=== PATIENT | female | born 1955 | race Caucasian/White ===

== ENCOUNTER 2018-12-25 14:13 | Day surgery (SDC) | payer BC, OTHER ==
[2018-12-25] VITALS (13 sets, daily range): BP systolic 105–154; BP diastolic 41–62
[~2018-12-25] VITALS: Ht 167.6 cm; Wt 108.6 kg
[~2018-12-25 14:13] MED LIST: ATOR10TA87 PO; CARV3.12; DIGO0.25 PO; ENOX100S3 SQ; FURO-150 PO; HYDR1TAB PO; LISI-600 PO; NAPR-56 CORPAK; POTA10CA33 PO; TIOT18CA7 IH; WARF2TAB PO; WARF4TAB36 PO
[2018-12-25] MEDS ORDERED: normal saline 1000ml 1,000 ML IV SCH (14:35)
[2018-12-25] MEDS ORDERED: fentaNYL/PF 50MCG/1 ML 2ML syringe IV PRN (14:35)
[2018-12-25] MEDS ORDERED: MIDAZolam 5mg/ml 2ml vial IV PRN (14:40)
[2018-12-25] MEDS ORDERED: PANT-47 PO (15:59)
[2018-12-25] MEDS ORDERED: oxygen NASALCANN (15:59)
[2018-12-25] MEDS ORDERED: METR45CR2 TOP (15:59)
[2018-12-25] MEDS ORDERED: FEBU40TA PO (15:59)
[2018-12-25] MEDS ORDERED: Diltiazem PO (15:59)
[2018-12-25] MEDS ORDERED: CARB15DR OP (15:59)
[2018-12-25] MEDS ORDERED: ALBU18HF2 INH (15:59)
[2018-12-25] MEDS ORDERED: SILD20TA2 PO (15:59)
[2018-12-25] MEDS ORDERED: HYDR-4353 PO (15:59)
[2018-12-25] MEDS ORDERED: CELE200C PO (15:59)
[2018-12-25] MEDS ORDERED: POLY17PO10 PO (15:59)
[2018-12-25] MEDS ORDERED: POTA10TA10 PO (15:59)
[2018-12-25] MEDS ORDERED: pneumococcal 23-VAL P-sac vacc 25 mcg/0.5ml vial IMVAC ONE (16:25)
== END 2018-12-25 18:30 | disposition home or self-care (01) ==
LOC: SSTAY O 14:13
PROVIDERS: ATTEND Internal Medicine Interventional Cardiology
DX: I34.0 Nonrheumatic mitral (valve) insufficiency (principal); I38 Endocarditis, valve unspecified; J44.9 Chronic obstructive pulmonary disease, unspecified; Z95.0 Presence of cardiac pacemaker; I27.20 Pulmonary hypertension, unspecified; M10.9 Gout, unspecified; Z98.890 Other specified postprocedural states; Z79.899 Other long term (current) drug therapy; Z86.19 Personal history of other infectious and parasitic diseases
CPT/HCPCS: 36415; 85610; 93312; J2250; J3010; J7030

== ENCOUNTER 2019-03-21 11:25 | Day surgery (SDC) | payer BC, OTHER ==
[2019-03-18 12:42] LABS: BASOPHILS # (AUTO) 0.1 X10'3 (0-0.2); BASOPHILS % (AUTO) 1.3 % (0-1); EOSINOPHILS # (AUTO) 0.4 X10'3 (0-0.9); EOSINOPHILS % (AUTO) 4.4 % (0-6); LYMPHOCYTES # (AUTO) 2.8 X10'3 (1.1-4.8); LYMPHOCYTES % (AUTO) 27.8 % (21-51); MEAN CORPUSCULAR HGB CONC 33.3 g/dL (33.0-36.5); MEAN CORPUSCULAR VOLUME 99.1 FL (78-98); MEAN PLATELET VOLUME 8.9 FL (7.4-10.4); MONOCYTES # (AUTO) 1.3 X10'3 (0-0.9); MONOCYTES % (AUTO) 12.6 % (2-12); NEUTROPHILS # (AUTO) 5.4 X10'3 (1.8-7.7); NEUTROPHILS % (AUTO) 53.9 % (42-75); PRE OP HEMATOCRIT 25.1 % (35.0-45.0); PRE OP PLATELET COUNT 397 X10'3 (140-440); RED BLOOD COUNT 2.53 X10'6 (4.20-5.60); RED CELL DISTRIBUTION WIDTH 14.8 % (11.5-14.5)
[2019-03-18 12:45] LABS: PRE OP HEMOGLOBIN 8.4 g/dL (12.0-16.0)
[2019-03-18 12:51] LABS: PRE OP PROTIME 25.1 SECONDS (9.0-12.0)
[2019-03-18 12:53] LABS: PRE OP INR 2.6 INR
[2019-03-18 12:54] LABS: ALBUMIN 3.8 G/DL (3.4-5.0); ALBUMIN/GLOBULIN RATIO 1.2 (1.1-1.5); ALKALINE PHOSPHATASE 82 IU/L (46-116); BLOOD UREA NITROGEN 21 MG/DL (7-18); BUN/CREATININE RATIO 20.4 (6.6-38.0); CALCIUM 8.6 MG/DL (8.5-10.1); CHLORIDE 111 MMOL/L (99-107); CREATININE 1.03 MG/DL (0.40-0.90); PRE OP ALT 22 U/L (30-65); PRE OP ANION GAP 5 (8-16); PRE OP AST 20 U/L (10-37); PRE OP BILIRUB, TOTAL 0.4 MG/DL (0.0-1.0); PRE OP GLUCOSE 84 MG/DL (70-104); PRE OP SODIUM 147 MMOL/L (135-145); TOTAL CARBON DIOXIDE 30.7 MMOL/L (24-32); eGFR 54 ML/MIN
[2019-03-21] VITALS (10 sets, daily range): BP systolic 110–131; BP diastolic 43–76
[~2019-03-21] VITALS: Ht 167.6 cm; Wt 112.0 kg
[~2019-03-21 11:25] MED LIST changes: +ALBU18HF2 INH; -ATOR10TA87 PO; +CARB15DR OP; -CARV3.12; +CELE200C PO; -DIGO0.25 PO; +Diltiazem PO; -ENOX100S3 SQ; +FEBU40TA PO; +HYDR-4353 PO; -HYDR1TAB PO; +METR45CR2 TOP; -NAPR-56 CORPAK; +PANT-47 PO; +POLY17PO10 PO; -POTA10CA33 PO; +POTA10TA10 PO; +SILD20TA2 PO; -TIOT18CA7 IH; +albuterol 2.5 MG/3 ML nebule NEB ONE; +famotidine 20mg tablet PO ONE; +oxygen NASALCANN; +ringers solution, lacted 1,000 ML IV SCH; +vancomycin inj 1,500 MG in normal saline 300ml IV soln IV ONE
[2019-03-21] MEDS ORDERED: MIDAZolam 5mg/ml 2ml vial IV PRN (12:15)
[2019-03-21] MEDS ORDERED: ringers solution, lacted 1,000 ML IV SCH (12:19)
[2019-03-21] MEDS ORDERED: ondansetron/PF 4mg/2ml inj IV PRN (12:20)
[2019-03-21] MEDS ORDERED: labetalol 20mg/4ml (5mg/ml) syringe IV PRN (12:20)
[2019-03-21] MEDS ORDERED: morphine 4 MG/ML inj SYRINge IV PRN ×2 (12:20)
[2019-03-21] MEDS ORDERED: hydrALAZINE 20mg/ml inj. IV PRN (12:20)
[2019-03-21] MEDS ORDERED: fentaNYL/PF 50MCG/1 ML 2ML syringe IV PRN ×2 (12:20)
[2019-03-21 13:10] LABS: PRE OP PROTIME 16.1 SECONDS (9.0-12.0)
[2019-03-21 13:18] LABS: PRE OP INR 1.6 INR
[2019-03-21] MEDS ORDERED: gentamicin 40 MG/1 ML inj ONE (13:37)
[2019-03-21] MEDS ORDERED: ceFAZolin 1000mg inj ONE (13:37)
[2019-03-21] MEDS ORDERED: BUPIVAcaine/PF 2.5 mg/ml (0.25%) 30ml vial ONE (13:37)
[2019-03-21] MEDS ORDERED: etomidate 2mg/ml inj. ONE (13:40)
[2019-03-21] MEDS ORDERED: fentaNYL/PF 50MCG/1 ML 2ML syringe ONE ×2 (13:41→14:16)
[2019-03-21] MEDS ORDERED: midazolam 2 mg/2 ml injection ONE (13:41)
[2019-03-21] MEDS ORDERED: sevoflurane 250ml liquid IH ONE (13:44)
[2019-03-21] MEDS ORDERED: acetaminophen 1,000mg/100ml IV 100 ML IV SCH (15:10)
--- NOTE | 2019-03-21 16:07 | NUR ---
AWAKE AND ORIENTED. VITALS STABLE. DRESSING DI. STATES PAIN IMPROVING. HOME WITH HER SPOUSE AT THIS TIME.
== END 2019-03-21 16:07 | disposition home or self-care (01) ==
LOC: PAS 11:25
PROVIDERS: ATTEND Specialist
DX: T82.847A Pain due to cardiac prosthetic devices, implants and grafts, initial encounter (principal); E78.5 Hyperlipidemia, unspecified; I27.20 Pulmonary hypertension, unspecified; J43.9 Emphysema, unspecified; M19.90 Unspecified osteoarthritis, unspecified site; K21.9 Gastro-esophageal reflux disease without esophagitis; M10.9 Gout, unspecified; E66.9 Obesity, unspecified; Z68.39 Body mass index [BMI] 39.0-39.9, adult; Z90.81 Acquired absence of spleen; Z86.73 Personal history of transient ischemic attack (TIA), and cerebral infarction without residual deficits; Z79.899 Other long term (current) drug therapy; Z79.01 Long term (current) use of anticoagulants; Z87.891 Personal history of nicotine dependence; Z86.14 Personal history of Methicillin resistant Staphylococcus aureus infection; Y83.8 Other surgical procedures as the cause of abnormal reaction of the patient, or of later complication, without mention of misadventure at the time of the procedure; Y92.89 Other specified places as the place of occurrence of the external cause
CPT/HCPCS: 33222; 36415; 80053; 82948; 85025; 85610; 85730; 93005; 94640; 94760; J0131; J0690; J1580; J2250; J2270; J2405; J3010; J3370; J3490; J7050; A4215; A4618; A6449; A7000; J7120

== ENCOUNTER 2019-03-26 07:49 | Day surgery (SDC) | payer BC, OTHER ==
[~2019-03-26] VITALS: Ht 167.6 cm; Wt 117.2 kg
[2019-03-26] VITALS (9 sets, daily range): BP systolic 103–122; BP diastolic 52–67
[~2019-03-26 07:49] MED LIST changes: -albuterol 2.5 MG/3 ML nebule NEB ONE; -famotidine 20mg tablet PO ONE; -ringers solution, lacted 1,000 ML IV SCH; -vancomycin inj 1,500 MG in normal saline 300ml IV soln IV ONE
[2019-03-26] MEDS ORDERED: dexamethasone sod phosphate 10mg/ml inj IV ONE (08:05)
[2019-03-26] MEDS ORDERED: acetaminophen 325mg tablet PO ONE (08:05)
[2019-03-26] MEDS ORDERED: diphenhydrAMINE 50 mg/ml inj IV ONE (08:05)
[2019-03-26] MEDS ORDERED: FLU VACC QS2019-20(6MOS UP)/PF 60 MCG/0.5 ML SYRINGE IMVAC ONE (10:00)
[2019-03-26] MEDS ORDERED: pneumococcal 23-VAL P-sac vacc 25 mcg/0.5ml vial IMVAC ONE (10:00)
== END 2019-03-26 12:25 | disposition home or self-care (01) ==
LOC: SSTAY O 07:49
PROVIDERS: ATTEND Internal Medicine Hematology & Oncology
DX: D50.9 Iron deficiency anemia, unspecified (principal); Z23 Encounter for immunization
CPT/HCPCS: 36415; 36430; 86885; 86900; 86901; 86920; 90732; G0009; J1200; P9016; J1100

== ENCOUNTER 2022-12-08 08:27 | Day surgery (SDC) | payer MEDICARE, OTHER ==
[~2022-12-08] VITALS: Ht 167.6 cm; Wt 99.7 kg
[2022-12-08] VITALS (7 sets, daily range): BP systolic 109–145; BP diastolic 54–78
[~2022-12-08 08:27] MED LIST changes: +ALEN70TA3 PO; +ATOR20TA66 PO; -FEBU40TA PO; -FURO-150 PO; +FURO20TA4 PO; -LISI-600 PO; +LISI20TA28 PO; -METR45CR2 TOP; -POLY17PO10 PO; +POTA-188 PO; -POTA10TA10 PO; +cefazolin 2gm/D5W 100mL 100 ML IV ONE; +famotidine 20mg tablet PO ONE; -oxygen NASALCANN; +ringers solution, lacted 1,000 ML IV SCH
[2022-12-08] MEDS: albuterol 2.5 MG/3 ML nebule NEB PRN ×2 (09:19→09:49)
[2022-12-08] MEDS ORDERED: fentaNYL/PF 50MCG/1 ML 2ML syringe ONE (10:41)
[2022-12-08] MEDS ORDERED: desflurane 240ml liquid inh. IH ONE (10:42)
[2022-12-08] MEDS ORDERED: rocuronium 10mg/ml inj IV ONE (10:42)
[2022-12-08] MEDS ORDERED: glycopyrrolate 0.2mg/ml inj ONE (10:42)
[2022-12-08] MEDS ORDERED: neostigmine methylsulfate 1 MG/ML 10ml vial ONE (10:42)
[2022-12-08] MEDS ORDERED: midazolam 1 mg/ML 2ml injection ONE (10:42)
[2022-12-08] MEDS ORDERED: morphine 4 MG/ML inj SYRINge IV PRN (10:50)
[2022-12-08] MEDS ORDERED: meperidine/PF 25mg/ml syringe IV PRN ×3 (10:50)
[2022-12-08] MEDS ORDERED: morphine 2 MG/ML inj. syringe IV PRN (10:50)
[2022-12-08] MEDS ORDERED: proCHLORperazine 10 MG/2 ml inj IV PRN (10:50)
[2022-12-08] MEDS ORDERED: ringers solution, lacted 1,000 ML IV SCH (10:50)
[2022-12-08] MEDS ORDERED: ondansetron/PF 4mg/2ml inj IV PRN (10:50)
[2022-12-08] MEDS ORDERED: LIDOcaine 1% (10mg/ml)w/preservative inj. 20ml MDV ONE (11:04)
[2022-12-08] MEDS ORDERED: BUPIVAcaine/PF 2.5 mg/ml (0.25%) 30ml vial ONE (11:04)
[2022-12-08] MEDS ORDERED: propofol inj 20 ML IV ONE (11:21)
[2022-12-08] MEDS ORDERED: dexamethasone sod phosphate 4mg/ml inj. ONE (11:21)
[2022-12-08] MEDS ORDERED: LIDOcaine 2% (20mg/ml) 5ml vial ONE (11:21)
[2022-12-08] MEDS ORDERED: ondansetron/PF 4mg/2ml inj ONE (11:21)
[2022-12-08] MEDS ORDERED: BUPIVAcaine/PF 2.5 mg/ml (0.25%) 30ml vial IJ ONE (11:24)
[2022-12-08] MEDS ORDERED: LIDOcaine 1% 30ml preserv. free vial IJ ONE (11:25)
[2022-12-08] MEDS ORDERED: acetaminophen 1,000mg/100ml IV 100 ML IV ONE (11:42)
--- NOTE | 2022-12-08 11:56 | NUR ---
Received from OR via [facility], accompanied by Anesthesiologist and report given by SUE Anesthesiologist. PATIENT WAKING UP, DENIES PAIN, V/S WNL, PIV 20G LEFT AC, ISLAND DRESSING C/D/I TO ABDOMEN.
[2022-12-08] MEDS ORDERED: HYDROcodone/acetaminophen 5mg/325mg tablet PO PRN (12:00)
[2022-12-08] MEDS ORDERED: HYDROcodone/acetaminophen 10/325mg tab PO PRN (12:08)
--- NOTE | 2022-12-08 12:46 | NUR ---
ALL DISCHARGE CRITERIA HAS BEEN MET. VSS, PAIN AT A TOLERABLE LEVEL, VOIDING AND ABLE TO SAFELY AMBULATE AND TRANSFER SELF. IV TAKEN OUT WITHOUT ANY COMPLICATIONS. ALL DISCHARGE INSTRUCTIONS COVERED WITH PATIENT AND ALL QUESTIONS ANSWERED. PATIENT TAKEN OUT VIA WHEELCHAIR WITH ALL BELONGINGS TO PERSONAL VEHICLE WHERE FAMILY DROVE PATIENT HOME. Addendum: 12/08/22 at 1303 by Ismael Hamilton RN Amended: Links added.
== END 2022-12-08 12:46 | disposition home or self-care (01) ==
LOC: PAS 08:27
PROVIDERS: ATTEND Surgery
DX: K43.0 Incisional hernia with obstruction, without gangrene (principal); I27.20 Pulmonary hypertension, unspecified; D50.9 Iron deficiency anemia, unspecified; I47.1 Supraventricular tachycardia; I27.89 Other specified pulmonary heart diseases; E78.49 Other hyperlipidemia; M1A.9XX0 Chronic gout, unspecified, without tophus (tophi); E66.01 Morbid (severe) obesity due to excess calories; Z68.35 Body mass index [BMI] 35.0-35.9, adult; B19.20 Unspecified viral hepatitis C without hepatic coma; J43.9 Emphysema, unspecified; G47.30 Sleep apnea, unspecified; M19.90 Unspecified osteoarthritis, unspecified site; K21.9 Gastro-esophageal reflux disease without esophagitis; I10 Essential (primary) hypertension; Z85.828 Personal history of other malignant neoplasm of skin; Z99.81 Dependence on supplemental oxygen; Z87.891 Personal history of nicotine dependence; Z95.2 Presence of prosthetic heart valve; Z95.0 Presence of cardiac pacemaker; Z90.81 Acquired absence of spleen; Z79.899 Other long term (current) drug therapy; Z79.01 Long term (current) use of anticoagulants; Z88.8 Allergy status to other drugs, medicaments and biological substances; Z98.890 Other specified postprocedural states
CPT/HCPCS: 49594; 82948; 93005; 94640; 94760; C1781; J0131; J0690; J1100; J2250; J2405; J2704; J2710; J3010; J3490; J7030; J7120; Z7506; Z7508; Z7512; A4215; A4615; A4618; A7000